=== PATIENT | female | born 2000 | race Caucasian/White ===

== ENCOUNTER 2019-03-13 16:21 | Emergency (ER) | payer BC ==
--- NOTE | 2019-03-13 16:32 | EDM.PDOC ---
ED HPI GENERAL MEDICAL PROBLEM - General Chief Complaint: Eye Problems Stated Complaint: 12 WKS PG/LOSS OF VISION Time Seen by Provider: 03/13/19 16:32 - History of Present Illness INITIAL COMMENTS - FREE TEXT/NARRATIVE: 18-year-old female comes emergency room with partial vision loss out of her R eye. Over the course of couple of minutes the patient had significant blurriness in her vision from the right eye area this started to improve before she arrived here. Her past medical history is complicated by the fact that she is now 13 weeks the patient has not noticed any headaches no areas of numbness or weakness. No speech or ambulatory difficulties. Patient is a 1 para 0. She's had no palpitations with the no cramping contractions vaginal discharge or bleeding. - Related Data Allergies Allergy/AdvReac Type Severity Reaction Status Date / Time No Known Allergies Allergy Verified 03/13/19 16:26 Home Meds: Home Meds . 03/13/19 [History] Past Medical History - Past Health History Medical/Surgical History: Denies Medical/Surgical History - Past Surgical History Musculoskeletal Surgical History: Reports: Shoulder Surgery, Other (See Below) Other Musculoskeletal Surgeries/Procedures:: hip surgery Social & Family History - Caffeine Use Caffeine Use: Reports: Coffee, Soda ED ROS GENERAL - Review of Systems Review Of Systems: See Below Constitutional: Reports: No Symptoms HEENT: Reports: No Symptoms, Other (Right eye blurriness) Respiratory: Reports: No Symptoms Cardiovascular: Reports: No Symptoms GI/Abdominal: Reports: No Symptoms : Reports: No Symptoms Neurological: Reports: No Symptoms ED EXAM GENERAL W FULL EYE - Physical Exam Exam: See Below Exam Limited By: No Limitations General Appearance: Alert, No Apparent Distress, Other (The time of my examination her vision was nearly normal.) Eye Exam: Bilateral Eye: EOMI, Normal Inspection, PERRL Visual Acuity (R) 20/: 50 Visual Acuity (L) 20/: 30 With Correction: No Eyelids: Bilateral: Normal Appearance Conjunctiva & Sclera: Bilateral: Normal Appearance Extraocular Movements: Bilateral: Intact Pupils: Normal Accommodation Posterior Chamber: Bilateral: Normal Funduscopic Ears: Normal External Exam, Normal Canal, Hearing Grossly Normal, Normal TMs Nose: Normal Inspection, Normal Mucosa, No Blood Throat/Mouth: Normal Inspection, Normal Lips, Normal Teeth, Normal Gums, Normal Oropharynx, Normal Voice, No Airway Compromise Head: Atraumatic, Normocephalic Neck: Normal Inspection, Supple, Non-Tender, Full Range of Motion. No: Lymphadenopathy (L), Lymphadenopathy (R) Respiratory/Chest: No Respiratory Distress, Lungs Clear, Normal Breath Sounds Cardiovascular: Regular Rate, Rhythm, No Edema, No Murmur Neurological: Alert, Oriented, Normal Cognition, Other (Cranial nerves II through XII grossly intact all muscle groups the upper and lower extremities are equal and appropriate bilaterally the patient is ambulatory without difficulty cerebellar testing is entirely within normal limits deep tendon reflexes are equal and appropriate) Course - Vital Signs Last Recorded V/S: Last Vital Signs Temp 36.8 C 03/13/19 16:27 Pulse 104 H 03/13/19 16:27 Resp BP 140/76 03/13/19 16:27 Pulse Ox 98 03/13/19 16:27 - Orders/Labs/Meds Labs: Laboratory Tests 03/13/19 03/13/19 03/13/19 Range/Units 16:54 17:10 17:10 WBC 14.31 H (3.98-10.04) K/mm3 RBC 4.88 (3.98-5.22) M/mm3 Hgb 14.3 (11.2-15.7) gm/L Hct 42.1 (34.1-44.9) % MCV 86.3 (79.4-94.8) fl MCH 29.3 (25.6-32.2) pg MCHC 34.0 (32.2-35.5) g/dl RDW Std Deviation 40.9 (36.4-46.3) fL Plt Count 236 (182-369) K/mm3 MPV 8.9 L (9.4-12.3) fl Neutrophils % (Manual) 72 H (40-60) % Band Neutrophils % 2 (0-10) % Lymphocytes % (Manual) 17 L (20-40) % Atypical Lymphs % 0 % Monocytes % (Manual) 8 (2-10) % Eosinophils % (Manual) 0 L (0.7-5.8) % Basophils % (Manual) 1 (0.1-1.2) Platelet Estimate Adequate Plt Morphology Comment Normal RBC Morph Comment Normal Sodium 137 (136-145) mEq/L Potassium 3.6 (3.5-5.1) mEq/L Chloride 101 (98-107) mEq/L Carbon Dioxide 23 (21-32) mEq/L Anion Gap 16.6 H (5-15) BUN 12 (7-18) mg/dL Creatinine 0.5 L (0.55-1.02) mg/dL Est Cr Clr Drug Dosing 149.70 mL/min Estimated GFR (MDRD) > 60 (>60) mL/min BUN/Creatinine Ratio 24.0 H (14-18) Glucose 100 (74-106) mg/dL Calcium 9.2 (8.5-10.1) mg/dL Total Bilirubin 0.2 (0.2-1.0) mg/dL AST 12 L (15-37) U/L ALT 13 L (14-59) U/L Alkaline Phosphatase 48 (46-116) U/L Total Protein 7.3 (6.4-8.2) g/dl Albumin 3.4 (3.4-5.0) g/dl Globulin 3.9 gm/dL Albumin/Globulin Ratio 0.9 L (1-2) Urine Color Yellow (Yellow) Urine Appearance Clear (Clear) Urine pH 6.5 (5.0-8.0) Ur Specific [place] 1.020 (1.005-1.030) Urine Protein Negative (Negative) Urine Glucose (UA) Negative (Negative) Urine Ketones Negative (Negative) Urine Occult Blood 2+ H (Negative) Urine Nitrite Negative (Negative) Urine Bilirubin Negative (Negative) Urine Urobilinogen 0.2 (0.2-1.0) Ur Leukocyte Esterase Negative (Negative) Urine RBC 5-10 H (0-5) /hpf Urine WBC 0-5 (0-5) /hpf Ur Epithelial Cells 5-10 H (0-5) /hpf Urine Bacteria Moderate H (FEW) /hpf Urine Mucus Not seen (FEW) /hpf - Re-Assessments/Exams Free Text/Narrative Re-Assessment/Exam: 03/13/19 18:49 Case was reviewed with Dr. Kessler on-call for Dr. Osborn. Her recommendation is with the normal neurologic exam to send her home and have her follow-up with Dr. Osborn early this next week. Labs were reviewed she's had some microscopic hematuria present but no signs of infection apparently she cleaned herself little on the vigorous side. She's but she's not having any spotting or cramping or contractions. She has no proteinuria at this time the patient's vision is entirely normal and it has been this way for about an hour Departure - Departure Time of Disposition: 18:52 Disposition: Home, Self-Care 01 Clinical Impression: Atypical migraine, First trimester - Discharge Information Referrals: Di Osborn MD [Primary Care Provider] - Forms: ED Department Discharge Additional Instructions: Return to the emergency room with any questions problems or concerning symptoms. Follow-up with Dr. Osborn early this week. Avoid any strenuous activity.
== END 2019-03-13 19:08 | disposition home or self-care (01) ==
LOC: JD.ED 16:21
DX: O99.351 Diseases of the nervous system complicating pregnancy, first trimester (principal); G43.909 Migraine, unspecified, not intractable, without status migrainosus; Z3A.13 13 weeks gestation of pregnancy
CPT/HCPCS: 36415; 80053; 81001; 85007; 85027; 99282; 99284-25

== ENCOUNTER 2019-09-14 06:48 | Inpatient (IN) | payer BC ==
[2019-09-14] MEDS ORDERED: ceFAZolin 2 GM in Premix Bag 1 BAG IV ONE (07:25)
[2019-09-14] MEDS ORDERED: Citric Acid/Sodium Citrate Solution 30 ML Cup PO ONE (07:25)
[2019-09-14] MEDS ORDERED: Metoclopramide 10 MG/2 ML SDV IVPUSH ONE (07:25)
[2019-09-14] MEDS ORDERED: Sodium Chloride 0.9% 10 ML Syringe FLUSH PRN (07:25)
--- NOTE | 2019-09-14 07:25 | PCM.LDHP ---
L&D History of Present Illness - General Date of Service: 09/14/19 Admit Problem/Dx: Admission Diagnosis/Problem Admission Diagnosis/Problem Source of Information: Patient History Limitations: Reports: No Limitations - History of Present Illness Introduction:: 19 year old at 39+ here for primary section for breech. C with Dr. Osborn without complications. Records reviewed. 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: , Spontaneous Other OB/BYN History: SAB 06/2018 - Past Surgical History Musculoskeletal Surgical History: Reports: Arthroscopic Procedure, Shoulder Surgery, Other (See Below) Other Musculoskeletal Surgeries/Procedures:: hip surgery 2017, Shoulder in 2015 Social & Family History - Family History Family Medical History: Noncontributory - Tobacco Use Smoking Status *Q: Former Smoker Years of Tobacco use: 2 Packs/Tins Daily: 0.5 Used Tobacco, but Quit: Yes Month/Year Tobacco Last Used: 01/2019 - Caffeine Use Caffeine Use: Reports: Coffee, Soda - Recreational Drug Use Recreational Drug Use: No H&P Review of Systems - Review of Systems: Review Of Systems: See Below General: Reports: No Symptoms HEENT: Reports: No Symptoms Pulmonary: Reports: No Symptoms Cardiovascular: Reports: No Symptoms Gastrointestinal: Reports: No Symptoms Genitourinary: Reports: No Symptoms Musculoskeletal: Reports: No Symptoms Skin: Reports: No Symptoms Psychiatric: Reports: No Symptoms Neurological: Reports: No Symptoms Hematologic/Lymphatic: Reports: No Symptoms Immunologic: Reports: No Symptoms L&D Exam - Exam Exam: See Below - OB Specific Fundal Height In cm: 39 Contraction Intensity: none Movement: Active Heart Tones: Present Heart Rate (FHR) Variability: Moderate (6-25 bmp) Presentation: Breech - Exam General: Alert, Oriented HEENT: PERRLA, Conjunctiva Clear, EACs Clear, EOMI, Hearing Intact, Mucosa Moist & [place], Nares Patent, Normal Nasal Septum, Posterior Pharynx Clear, TMs Clear Neck: Supple, Trachea Midline Lungs: Clear to Auscultation, Normal Respiratory Effort Cardiovascular: Regular Rate, Regular Rhythm GI/Abdominal Exam: Normal Bowel Sounds, Soft, Non-Tender, No Organomegaly, No Distention, No Abnormal Bruit, No Mass, Pelvis Stable Extremities: Normal Inspection, Normal Range of Motion Skin: Warm, Dry, Intact Neurological: Cranial Nerves Intact, Reflexes Equal Bilateral Psychiatric: Alert, Normal Affect, Normal Mood Problem List Initiated/Reviewed/Updated: Yes Assessment/Plan Comment:: Term . Desires for breech. Risks, benefits and alternatives discussed including but not limited to bleeding, infection, injury to nearby structures and need for reoperation. Patient states understanding and wishes to proceed.
[2019-09-14] MEDS: Lactated Ringers 1,000 ML IV SCH ×2 (07:40→08:38)
--- NOTE | 2019-09-14 07:48 | PCM.PREANE ---
Preanesthetic Assessment - Procedure Proposed Procedure: csection - Anesthesia/Transfusion/Family Hx Anesthesia History: Prior Anesthesia Without Reaction Family History of Anesthesia Reaction: No Transfusion History: No Prior Transfusion(s) - Review of Systems General: No Symptoms Pulmonary: No Symptoms Cardiovascular: No Symptoms Gastrointestinal: No Symptoms Neurological: No Symptoms Other: Reports: None - Physical Assessment NPO Status Date: 09/13/19 NPO Status Time: 21:00 Vital Signs: 128/84 108 95% 20 98.8 Height: 5 ft 3 in Weight: 90.945 kg ASA Class: 2 Mental Status: Alert & Oriented x3 Airway Class: Mallampati = 1 Dentition: Reports: Normal Dentition Thyro-Mental Finger Breadths: 3 Mouth Opening Finger Breadths: 3 ROM/Head Extension: Full Lungs: Clear to Auscultation, Normal Respiratory Effort Cardiovascular: Regular Rate, Regular Rhythm, No Murmurs - Allergies Allergies/Adverse Reactions: Allergies Allergy/AdvReac Type Severity Reaction Status Date / Time nuts Allergy Severe Itching Uncoded 09/13/19 13:47 - Blood Blood Available: No - Acknowledgements Anesthesia Type Planned: Spinal Pt an Appropriate Candidate for the Planned Anesthesia: Yes Alternatives and Risks of Anesthesia Discussed w Pt/Guardian: Yes Pt/Guardian Understands and Agrees with Anesthesia Plan: Yes PreAnesthesia Questionnaire - Past Health History Medical/Surgical History: Denies Medical/Surgical History Cardiovascular History: Reports: None Respiratory History: Reports: None Gastrointestinal History: Reports: GERD (lidttle with preg) 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: , Spontaneous : 2 (39 3) Para: 0 Other OB/BYN History: SAB 06/2018 Neurological History: Reports: None Psychiatric History: Reports: None Endocrine/Metabolic History: Reports: None Hematologic History: Reports: None Oncologic (Cancer) History: Reports: None - Past Surgical History Musculoskeletal Surgical History: Reports: Arthroscopic Procedure, Shoulder Surgery, Other (See Below) Other Musculoskeletal Surgeries/Procedures:: hip surgery 2018, Shoulder in 2016 - SUBSTANCE USE Smoking Status *Q: Former Smoker (quit 9 months ago) Tobacco Use Within Last Twelve Months: Cigarettes Second Hand Smoke Exposure: Yes Days Per Week of Alcohol Use: 0 Recreational Drug Use History: No - HOME MEDS Home Medications: Home Meds Mv-Mn/Iron/FA/Herbal/Digestive [ One Tablet] 1 tab PO DAILY 09/13/19 [ History] - CURRENT (IN HOUSE) MEDS Current Meds: Current Medications Cefazolin Sodium/Dextrose 2 gm (/ Premix) 50 mls @ 100 mls/hr IV ONETIME ONE Stop: 09/14/19 07:54 Lactated Ringer's (Ringers, Lactated) 1,000 mls @ 125 mls/hr IV ASDIRECTED [facility] Sodium Chloride (Saline Flush) 10 ml FLUSH ASDIRECTED PRN PRN Reason: Keep Vein Open Discontinued Medications Citric Acid/Sodium Citrate (Bicitra Solution) 30 ml PO ONETIME ONE Stop: 09/14/19 07:26 Metoclopramide HCl (Reglan) 10 mg IVPUSH ONETIME ONE Stop: 09/14/19 07:26
[2019-09-14] MEDS ORDERED: Morphine PF 10 MG/10 ML SDV ONE (08:50)
[2019-09-14] MEDS ORDERED: Ketorolac 30 MG/ML SDV ONE (08:50)
[2019-09-14] MEDS ORDERED: Lactated Ringers 2,000 ML ONE (08:50)
[2019-09-14] MEDS ORDERED: ceFAZolin 1 GM Vial ONE (08:50)
[2019-09-14] MEDS ORDERED: Oxytocin 10 Units/1 ML SDV ONE (08:50)
[2019-09-14] MEDS ORDERED: Ondansetron 4 MG/2 ML SDV ONE (08:50)
[2019-09-14] MEDS ORDERED: Bupivacaine 0.5% 30 ML SDV ONE (09:32)
[2019-09-14] MEDS ORDERED: ePHEDrine Sulfate/0.9% NaCl/Pf 25 MG/5 ML SYRINGE IV ONE (10:09)
[2019-09-14] MEDS ORDERED: Ondansetron 4 MG/2 ML SDV IVPUSH PRN (10:12)
[2019-09-14] MEDS ORDERED: fentaNYL 100 MCG/2 ML SDV IVPUSH PRN (10:12)
[2019-09-14] MEDS ORDERED: diphenhydrAMINE 50 MG/ML SDV IVPUSH PRN ×2 (10:12→11:17)
--- NOTE | 2019-09-14 10:58 | PCM.POSTAN ---
POST ANESTHESIA ASSESSMENT - MENTAL STATUS Mental Status: Alert, Oriented - VITAL SIGNS Vital Signs: Last Vital Signs Temp 37.1 C 09/14/19 07:25 Pulse 117 H 09/14/19 07:25 Resp 20 09/14/19 07:25 BP 128/84 09/14/19 07:25 Pulse Ox 95 09/14/19 07:25 - RESPIRATORY Respiratory Status: Respiratory Rate WNL, Airway Patent, O2 Saturation Stable - CARDIOVASCULAR CV Status: Pulse Rate WNL, Blood Pressure Stable - GASTROINTESTINAL GI Status: No Symptoms - PAIN Pain Score: 0 - POST OP HYDRATION Hydration Status: Adequate & Stable
--- NOTE | 2019-09-14 11:03 | PCM.OPNOTE ---
- General Post-Op/Procedure Note Date of Surgery/Procedure: 09/14/19 Operative Procedure(s): primary Findings: Viable female, 3560g, 8/9 APGARS at 1023. Normal uterus tubes and ovaries. Pre Op Diagnosis: breech Post-Op Diagnosis: Same Anesthesia Technique: Spinal Primary Surgeon: Maria Guadalupe Matta Anesthesia Provider: Dalia Valentin Special Education Educational Assistant: Bala Caldwell Role of Special Education Educational Assistant: retraction, patient safety Fluid Replacement, Intraop: 3,000 Output, Urine Amount: 200 EBL in mLs: 500 Complications: None Condition: Good Free Text/Narrative:: The patient was taken to the operating room where spinal anesthesia was dosed to surgical levels without difficulty. The patient was prepped and draped in the usual sterile fashion in the dorsal supine position with a leftward tilt. A Pfannenstiel skin incision was made with the scalpel and carried through to the underlying layer of fascia. The fascia was incised in the midline and extended laterally using Christianson scissors. Maxine clamps were used to elevate the superior aspect of the fascial incision, which was elevated, and the underlying rectus muscles were dissected off bluntly and using Christianson scissors. Attention was then turned to the inferior aspect of the fascial incision, which in similar fashion was grasped with Maxine clamps, elevated, and the underlying rectus muscles were dissected off bluntly and using the christianson. The rectus muscles were dissected in the midline. The peritoneum was entered bluntly; this incision was extended superiorly and inferiorly with good visualization of the bladder. The bladder blade was inserted. The vesicouterine peritoneum was identified and entered sharply using Metzenbaum scissors. This incision was extended laterally and the bladder flap was created digitally. The bladder blade was reinserted. The lower uterine segment was incised in a transverse fashion using the scalpel and with digital traction. Clear fluid was noted. The infant was subsequently delivered by flexing the breech to the incision. Delivered with usual breech maneuvers. The cord was clamped and cut. The was subsequently handed to the awaiting maintenance painter whose presence had been requested.. The placenta was delivered spontaneously intact with a three-vessel cord noted. The uterus was exteriorized and cleared of all clots and debris. The uterine incision was repaired in 2 layers using 0 monocryl. Hemostasis was visualized. Hemostasis was visualized bilaterally. The uterus was returned to the abdomen. The uterine incision was reexamined and it was noted to be hemostatic. The pelvis was copiously irrigated. The fascia was closed with 1 PDS suture, and the skin was closed with 3-0 monocryl. Sponge, lap, and instrument counts were correct x2. The patient was stable at the completion of the procedure and was subsequently transferred to the recovery room in stable condition.
[2019-09-14] MEDS ORDERED: Acetaminophen/oxyCODONE 325-5 MG Tab PO PRN ×2 (11:17)
[2019-09-14] MEDS ORDERED: Dextrose 5%-Lactated Ringers 1,000 ML IV SCH (11:17)
[2019-09-14] MEDS ORDERED: ePHEDrine 50 MG/ML SDV IVPUSH PRN (11:17)
[2019-09-14] MEDS ORDERED: Naloxone 0.4 MG/ML SDV IVPUSH PRN (11:17)
--- NOTE | 2019-09-14 13:59 | PCM48HPAN ---
Post Anesthesia Note - EVALUATION WITHIN 48HRS OF ANESTHETIC Vital Signs in Normal Range: Yes Patient Participated in Evaluation: Yes Respiratory Function Stable: Yes Airway Patent: Yes Cardiovascular Function Stable: Yes Hydration Status Stable: Yes Pain Control Satisfactory: Yes Nausea and Vomiting Control Satisfactory: Yes Mental Status Recovered: Yes Vital Signs: Last Vital Signs Temp 36.2 C 09/14/19 11:45 Pulse 96 09/14/19 13:02 Resp 16 09/14/19 11:45 BP 128/73 09/14/19 13:02 Pulse Ox 100 09/14/19 13:02
[2019-09-14] MEDS: Ketorolac 30 MG/ML SDV IVPUSH SCH (16:04)
[2019-09-15] MEDS: Ketorolac 30 MG/ML SDV IVPUSH SCH ×2 (04:15→04:17)
--- NOTE | 2019-09-15 07:43 | PCM48HPAN ---
Post Anesthesia Note - EVALUATION WITHIN 48HRS OF ANESTHETIC Vital Signs in Normal Range: Yes Patient Participated in Evaluation: Yes Respiratory Function Stable: Yes Airway Patent: Yes Cardiovascular Function Stable: Yes Hydration Status Stable: Yes Pain Control Satisfactory: Yes Nausea and Vomiting Control Satisfactory: Yes Mental Status Recovered: Yes Vital Signs: Last Vital Signs Temp 36.4 C 09/14/19 16:00 Pulse 90 09/14/19 16:02 Resp 16 09/14/19 16:00 BP 121/64 09/14/19 16:02 Pulse Ox 100 09/14/19 16:02
--- NOTE | 2019-09-15 10:04 | PCM.PNPP ---
- General Info Date of Service: 09/15/19 Functional Status: Reports: Pain Controlled, Tolerating Diet, Ambulating, Urinating - Review of Systems General: Reports: No Symptoms Pulmonary: Reports: No Symptoms Cardiovascular: Reports: No Symptoms Gastrointestinal: Reports: Abdominal Pain Genitourinary: Reports: No Symptoms Musculoskeletal: Reports: No Symptoms Neurological: Reports: No Symptoms - Patient Data Vital Signs - Most Recent: Last Vital Signs Temp 36.4 C 09/14/19 16:00 Pulse 90 09/14/19 16:02 Resp 16 09/14/19 16:00 BP 121/64 09/14/19 16:02 Pulse Ox 100 09/14/19 16:02 Weight - Most Recent: 90.945 kg I&O - Last 24 Hours: Intake & Output 09/14/19 09/15/19 09/15/19 22:59 06:59 14:59 Intake Total 3500 Output Total 1150 1750 Balance 2350 -1750 Lab Results - Last 24 Hours: Laboratory Results - last 24 hr 09/14/19 09/14/19 09/15/19 Range/Units 07:42 07:42 05:30 WBC 15.43 H 17.59 H (3.98-10.04) K/mm3 RBC 4.50 4.38 (3.98-5.22) M/mm3 Hgb 13.3 13.0 (11.2-15.7) gm/dl Hct 41.1 40.5 (34.1-44.9) % MCV 91.3 92.5 (79.4-94.8) fl MCH 29.6 29.7 (25.6-32.2) pg MCHC 32.4 32.1 L (32.2-35.5) g/dl RDW Std Deviation 44.2 44.3 (36.4-46.3) fL Plt Count 213 215 (182-369) K/mm3 MPV 10.1 9.9 (9.4-12.3) fl Neutrophils % (Manual) 82 H (40-60) % Band Neutrophils % 0 (0-10) % Lymphocytes % (Manual) 15 L (20-40) % Atypical Lymphs % 0 % Immat Monocytes % (Man) 0 Monocytes % (Manual) 2 (2-10) % Eosinophils % (Manual) 1 (0.7-5.8) % Basophils % (Manual) 0 L (0.1-1.2) Metamyelocytes % 0 Myelocytes % 0 Promyelocytes % 0 Blast Cells % 0 Plasma Cell % (Manual) 0 Nucleated RBCs 0.0 % Platelet Estimate Adequate RBC Morph Comment Normal RPR Non-reactive (NONREACTIVE) Med Orders - Current: Current Medications Diphenhydramine HCl (Benadryl) 25 mg IVPUSH Q6H PRN PRN Reason: Itching or Nausea Ephedrine Sulfate (Ephedrine Sulfate) 5 mg IVPUSH SEECOMMENT PRN PRN Reason: Other Ibuprofen (Motrin) 600 mg PO Q6H PRN PRN Reason: mild pain or fever Naloxone HCl (Narcan) 0.1 mg IVPUSH SEECOMMENT PRN PRN Reason: Respiratory Depression Oxycodone/Acetaminophen (Percocet 325-5 Mg) 1 tab PO Q4H PRN PRN Reason: Pain (moderate 4-6) Oxycodone/Acetaminophen (Percocet 325-5 Mg) 2 tab PO Q4H PRN PRN Reason: Pain (severe 7-10) Discontinued Medications Bupivacaine HCl (Marcaine 0.5%) Confirm Administered Dose 30 ml .ROUTE .STK-MED ONE Stop: 09/14/19 09:33 Last Admin: 09/14/19 10:18 Dose: 17 ml Cefazolin Sodium (Ancef) Confirm Administered Dose 2 gm .ROUTE .STK-MED ONE Stop: 09/14/19 08:51 Citric Acid/Sodium Citrate (Bicitra Solution) 30 ml PO ONETIME ONE Stop: 09/14/19 07:26 Last Admin: 09/14/19 08:28 Dose: 30 ml Diphenhydramine HCl (Benadryl) 25 mg IVPUSH Q6H PRN PRN Reason: Pruritis Stop: 09/14/19 13:00 Ephedrine Sulfate (Ephedrine 25 Mg/5 Ml Syringe) Confirm Administered Dose 25 mg IV .STK-MED ONE Stop: 09/14/19 10:10 Fentanyl (Sublimaze) 50 mcg IVPUSH Q5M PRN PRN Reason: Pain Stop: 09/14/19 13:00 Cefazolin Sodium/Dextrose 2 gm (/ Premix) 50 mls @ 100 mls/hr IV ONETIME ONE Stop: 09/14/19 07:54 Last Admin: 09/15/19 04:31 Dose: Not Given Lactated Ringer's (Ringers, Lactated) 1,000 mls @ 125 mls/hr IV ASDIRECTED [facility] Last Admin: 09/14/19 08:38 Dose: 999 mls/hr Lactated Ringer's (Ringers, Lactated) Confirm Administered Dose 2,000 mls @ as directed .ROUTE .STK-MED ONE Stop: 09/14/19 08:51 Dextrose/Lactated Ringer's (Dextrose 5%-Lactated Ringers) 1,000 mls @ 125 mls/ hr IV ASDIRECTED [facility] Stop: 09/14/19 19:16 Last Admin: 09/14/19 14:43 Dose: 125 mls/hr Ketorolac Tromethamine (Toradol) Confirm Administered Dose 30 mg .ROUTE .STK- MED ONE Stop: 09/14/19 08:51 Ketorolac Tromethamine (Toradol) 30 mg IVPUSH Q6H [facility] Stop: 09/15/19 04:01 Last Admin: 09/15/19 04:17 Dose: 30 mg Metoclopramide HCl (Reglan) 10 mg IVPUSH ONETIME ONE Stop: 09/14/19 07:26 Last Admin: 09/14/19 08:28 Dose: 10 mg Morphine Sulfate (Duramorph Pf) Confirm Administered Dose 10 mg .ROUTE .STK-MED ONE Stop: 09/14/19 08:51 Ondansetron HCl (Zofran) Confirm Administered Dose 4 mg .ROUTE .STK-MED ONE Stop: 09/14/19 08:51 Ondansetron HCl (Zofran) 4 mg IVPUSH ONETIME PRN PRN Reason: Nausea/Vomiting Stop: 09/14/19 13:00 Oxytocin (Pitocin) Confirm Administered Dose 10 unit .ROUTE .STK-MED ONE Stop: 09/14/19 08:51 Sodium Chloride (Saline Flush) 10 ml FLUSH ASDIRECTED PRN PRN Reason: Keep Vein Open - Infant Interaction Infant Disposition, : [place] in Room with Family Infant Interaction: Holding Infant Infant Feeding: Attempted ; Nursed Fair/Poor Support Person: - Recovery Exam Fundal Tone: Firm Fundal Level: 2 Fingerbreadths Below Umbilicus Fundal Placement: Midline Lochia Amount: Scant Lochia Color: Rubra/Red Perineum Description: Intact, Minimal Bruising/Swelling Bladder Status: Voiding Urinary Elimination: Voided - Exam General: Alert, Oriented, Cooperative Lungs: Clear to Auscultation, Normal Respiratory Effort Cardiovascular: Regular Rate, Regular Rhythm GI/Abdominal Exam: Soft, Tender (appropriate) Extremities: Normal Inspection Skin: Warm, Dry, Intact Wound/Incisions: Healing Well, No Drainage - Problem List & Annotations (1) Breech presentation SNOMED Code(s): 2473941 Code(s): O32.1XX0 - MATERNAL CARE FOR BREECH PRESENTATION, UNSP Status: Acute Current Visit: Yes Qualifiers: Fetus number: single or unspecified fetus Qualified Code(s): O32.1XX0 - Maternal care for breech presentation, not applicable or unspecified (2) S/P primary low transverse SNOMED Code(s): 854855133, 24610942, 364334726, [id number], 367707172 Code(s): Z98.891 - HISTORY OF UTERINE SCAR FROM PREVIOUS SURGERY Status: Acute Current Visit: Yes - Problem List Review Problem List Initiated/Reviewed/Updated: Yes - Assessment Assessment:: POD#1 - Plan Plan:: * Routine cares * Breast feeding * Blood count appropriate this AM * Discharge home in 1-2 days
[2019-09-15] MEDS: Ibuprofen 600 MG Tab PO PRN ×3 (11:01→23:17)
[2019-09-16] MEDS: Ibuprofen 600 MG Tab PO PRN (06:08)
== END 2019-09-16 11:15 | disposition home or self-care (01) | DRG 540 ==
LOC: JD.OB 06:48
PROVIDERS: ADMIT Obstetrics & Gynecology; ATTEND Obstetrics & Gynecology
PROC: 10D00Z1 Extraction of Products of Conception, Low, Open Approach (ICD-10-PCS; principal; 2019-09-14)
DX: O32.1XX0 Maternal care for breech presentation, not applicable or unspecified (principal); Z3A.39 39 weeks gestation of pregnancy; Z37.0 Single live birth
CPT/HCPCS: 36415; 59025; 85007; 85027; 86592; 86850; 86900; 86901; 94762; A9270-GY; J0171; J0690; J1885; J2270; J2405; J2590; J2765; J3490; J7120; J7121

== ENCOUNTER 2022-05-15 09:26 | Emergency (ER) | payer OTHER ==
[2022-05-15] MEDS ORDERED: Sodium Chloride 0.9% 1,000 ML IV ONE (10:08)
== END 2022-05-15 13:13 | disposition home or self-care (01) ==
LOC: JD.ED 09:26
DX: R00.2 Palpitations (principal); Z72.0 Tobacco use; Z91.018 Allergy to other foods
CPT/HCPCS: 36415; 71045; 80053; 81001; 81025; 83735; 84484; 85025; 85379; 96360; 99285; J7030

== ENCOUNTER 2023-10-17 05:34 | Inpatient (IN) | payer OTHER ==
[~2023-10-17 05:34] MED LIST: Oxytocin/Lactated Ringers 30 UNIT/500 ML BAG IV SCH
[2023-10-17] MEDS: Lactated Ringers 1,000 ML IV SCH (06:22)
[2023-10-17 06:33] LABS: HEMATOCRIT 39.2 % (37.0-47.0); HEMOGLOBIN 13.3 gm/dl (12.0-16.0); MEAN CORPUSCULAR HEMOGLOBIN 29.8 pg (28.0-32.0); MEAN CORPUSCULAR HGB CONC 33.9 g/dl (32.0-36.0); MEAN CORPUSCULAR VOLUME 87.7 fl (83.0-99.0); PLATELET COUNT,PLT 185 K/mm3 (150-400); RED BLOOD CELL COUNT 4.47 M/mm3 (4.10-5.30); WHITE BLOOD CELL COUNT,WBC 13.05 K/mm3 (3.9-11.3)
[2023-10-17] MEDS ORDERED: ceFAZolin 2 GM Vial ONE (07:51)
[2023-10-17] MEDS ORDERED: Ondansetron 4 MG/2 ML SDV ONE (07:54)
[2023-10-17] MEDS ORDERED: Oxytocin 10 Units/1 ML SDV ONE (07:54)
[2023-10-17] MEDS ORDERED: Ketorolac 30 MG/ML SDV ONE (07:54)
[2023-10-17] MEDS: Citric Acid/Sodium Citrate Solution 30 ML Cup PO ONE (08:08)
[2023-10-17] MEDS: Metoclopramide 10 MG/2 ML SDV IVPUSH ONE (08:09)
[2023-10-17] MEDS ORDERED: ePHEDrine 50 MG/ML SDV ONE (08:45)
[2023-10-17] MEDS: Bupivacaine 0.5% 30 ML SDV ONE (08:54)
[2023-10-17] MEDS ORDERED: Lactated Ringers 1,000 ML ONE (09:14)
[2023-10-17] MEDS ORDERED: diphenhydrAMINE 50 MG/ML SDV IVPUSH PRN (11:35)
[2023-10-17] MEDS ORDERED: Acetaminophen/oxyCODONE 325-5 MG Tab PO PRN ×2 (11:35)
[2023-10-17] MEDS ORDERED: Oxytocin/Lactated Ringers 30 UNIT/500 ML BAG IV SCH (11:35)
[2023-10-17] MEDS ORDERED: ePHEDrine 50 MG/ML SDV IVPUSH PRN (11:35)
[2023-10-17] MEDS ORDERED: Naloxone 0.4 MG/ML SDV IVPUSH PRN (11:35)
[2023-10-17] MEDS: Simethicone 80 MG Tab.Chew PO SCH (15:36)
[2023-10-17] MEDS: Ketorolac 30 MG/ML SDV IVPUSH SCH (15:36)
[2023-10-17] MEDS: Dextrose 5%-Lactated Ringers 1,000 ML IV SCH (15:40)
[2023-10-17] MEDS: ceFAZolin 2 GM in Sodium Chloride 0.9% 50 ML IV ONE (20:08)
[2023-10-17] MEDS ORDERED: Magnesium Hydroxide 400 MG/5 ML Susp 30 ML Cup PO PRN (21:00)
[2023-10-17] MEDS: Docusate Sodium 100 MG Cap PO SCH (21:05)
[2023-10-18 06:12] LABS: BASOPHILS PERCENT AUTO 0.1 % (0.0-1.0); EOSINOPHILS PERCENT AUTO 0.1 % (0.0-6.0); HEMATOCRIT 35.7 % (37.0-47.0); HEMOGLOBIN 11.9 gm/dl (12.0-16.0); IMMATURE GRAN ABSOLUTE AUTO 0.11 K/mm3 (0.00-0.05); IMMATURE GRAN PERCENT AUTO 0.8 % (0.0-0.4); LYMPHOCYTES ABSOLUTE AUTO 2.2 K/mm3 (1.0-4.8); LYMPHOCYTES PERCENT AUTO 15.6 % (24.0-44.0); MEAN CORPUSCULAR HEMOGLOBIN 30.4 pg (28.0-32.0); MEAN CORPUSCULAR HGB CONC 33.3 g/dl (32.0-36.0); MEAN PLATELET VOLUME 9.9 fl (9.4-12.3); MONOCYTES ABSOLUTE AUTO 0.7 K/mm3 (0.0-0.8); MONOCYTES PERCENT AUTO 4.9 % (0.0-8.0); NEUTROPHILS ABSOLUTE AUTO 10.9 K/mm3 (1.8-7.7); NEUTROPHILS PERCENT AUTO 78.5 % (41.0-71.0); PLATELET COUNT,PLT 178 K/mm3 (150-400); RED BLOOD CELL COUNT 3.92 M/mm3 (4.10-5.30); WHITE BLOOD CELL COUNT,WBC 13.85 K/mm3 (3.9-11.3)
[2023-10-18 06:17] LABS: MEAN CORPUSCULAR VOLUME 91.1 fl (83.0-99.0)
[2023-10-18] MEDS: Ibuprofen 600 MG Tab PO PRN (09:11)
[2023-10-18] MEDS: Prenatal Multivitamin with Calcium/Folic Acid/Iron Tab PO SCH (09:12)
== END 2023-10-19 09:37 | disposition home or self-care (01) | DRG 788 ==
LOC: JD.MS 05:34 → JD.OB 11:35
PROVIDERS: ADMIT Obstetrics & Gynecology; ATTEND Obstetrics & Gynecology
PROC: 10D00Z1 Extraction of Products of Conception, Low, Open Approach (ICD-10-PCS; principal; 2023-10-17 08:00)
DX: O34.211 Maternal care for low transverse scar from previous cesarean delivery (principal); O99.824 Streptococcus B carrier state complicating childbirth; O13.4 Gestational [pregnancy-induced] hypertension without significant proteinuria, complicating childbirth; Z3A.37 37 weeks gestation of pregnancy; Z37.0 Single live birth; Z91.018 Allergy to other foods; Z98.890 Other specified postprocedural states
CPT/HCPCS: 36415; 59025; 85025; 85027; 86592; 86850; 86900; 86901; A9270-GY; J0665; J0690; J1885; J2405; J2590; J2765; J3490; J7120; J7121